=== PATIENT | male | born 1950 | race Caucasian/White ===

== ENCOUNTER 2017-07-16 08:48 | Day surgery (SDC) | payer BC, MEDICARE ==
[~2017-07-16 08:48] MED LIST: Metoclopramide 10 MG/2 ML SDV IV PRN; Sodium Chloride 0.9% 10 ML Syringe FLUSH PRN
[2017-07-16] MEDS ORDERED: Sodium Chloride 0.9% 1,000 ML IV SCH (09:30)
[2017-07-16] MEDS ORDERED: Glycopyrrolate 0.2 MG/ML 2 ML SDV ONE (10:30)
[2017-07-16] MEDS ORDERED: Propofol 200 MG/20 ML SDV ONE (10:30)
--- NOTE | 2017-07-16 16:00 | OR ---
DATE OF OPERATION: 07/16/2017 PREOPERATIVE DIAGNOSIS: Screening colonoscopy, average risk. POSTOPERATIVE DIAGNOSIS: Melanosis coli, otherwise normal colonoscopy. OPERATION: Screening colonoscopy, average risk. COMPLICATIONS: None. DRAINS: None. SPECIMENS: None. ESTIMATED BLOOD LOSS: Zero. ANESTHESIA: General propofol anesthesia. INDICATION: Mr. Mckinney is a 67-year-old gentleman with a previous colonoscopy 10 years ago. He is of average risk, and he is here for a screening colonoscopy. The above- mentioned procedure was explained. The risks, benefits, complications were explained. Patient understood and agreed, and was brought to the operating room. DESCRIPTION OF PROCEDURE: The patient was brought to the operating room, placed in a left lateral decubitus position on the operating table. Satisfactory general propofol anesthesia was administered. We began by performing a rectal examination, which was within normal limits. There was, however, several skin tags suggestive of external hemorrhoids. There was also a perianal skin tag suggestive of condyloma. Next, the endoscope was placed by finger introduction into the rectum and subsequently advanced to the level of the cecum. Cecum was identified by the appendiceal orifice, the cecal strap, and the ileocecal valve. Next, careful evaluation of the mucosa was performed on withdrawal. There was no evidence of telangiectasias, polyps, neoplastic growths, or diverticulosis. However, the colon was stained suggestive of melanosis coli, which was mild to moderate. Next, we performed a retroflexion maneuver within the rectum, which was within normal limits. It is of note that I did find that the transverse colon of the patient was quite tortuous and spiraled when the endoscope passed through. Next, the colon was decompressed and the endoscope was withdrawn. The patient tolerated the procedure well. There were no complications. Instrument count was correct. The patient was awoken in the OR and taken to the PACU for recovery. FRANCISCO/MARGO /[id number]
== END 2017-07-16 12:40 | disposition home or self-care (01) ==
LOC: LB.SDS 08:48
PROVIDERS: ATTEND Surgery
DX: Z12.11 Encounter for screening for malignant neoplasm of colon (principal); K63.89 Other specified diseases of intestine; K64.4 Residual hemorrhoidal skin tags; Z79.82 Long term (current) use of aspirin; Z79.899 Other long term (current) drug therapy; Z98.890 Other specified postprocedural states
CPT/HCPCS: 45378; J2704; J7040; J3490

== ENCOUNTER 2020-06-28 07:26 | Day surgery (SDC) | payer BC, MEDICARE ==
[~2020-06-28 07:26] MED LIST changes: +Lactated Ringers 1,000 ML IV SCH; -Metoclopramide 10 MG/2 ML SDV IV PRN; +Sodium Chloride 0.9% 1,000 ML IV SCH; -Sodium Chloride 0.9% 10 ML Syringe FLUSH PRN; +ceFAZolin 1 GM in Sodium Chloride 0.9% 50 ML IV ONE; +ceFAZolin 2 GM in Sodium Chloride 0.9% 100 ML IV ONE
[2020-06-28] MEDS ORDERED: Ondansetron 4 MG/2 ML SDV IVPUSH PRN (08:00)
[2020-06-28] MEDS ORDERED: Morphine 2 MG/ML SYRINGE IVPUSH PRN (08:00)
[2020-06-28] MEDS ORDERED: Acetaminophen/HYDROcodone 325-5 MG Tab PO PRN (08:00)
[2020-06-28] MEDS ORDERED: Midazolam 1 MG/ML 2 ML SDV ONE (09:45)
[2020-06-28] MEDS ORDERED: Sodium Chloride 0.9% 10 ML Syringe FLUSH PRN (11:48)
--- NOTE | 2020-06-28 13:55 | OR ---
DATE OF OPERATION: 06/28/2020 SURGEON: Pritesh Mehta MD BRAKE REPAIRER: Allison Katz RN PREOPERATIVE DIAGNOSIS: Right inguinal hernia. POSTOPERATIVE DIAGNOSIS: Recurrent right inguinal hernia. PROCEDURE: Open repair of recurrent right inguinal hernia with mesh. ANESTHESIA: Spinal and local. ESTIMATED BLOOD LOSS: 25 mL. COMPLICATIONS: None. INDICATION FOR THE PROCEDURE: The patient is a 70-year-old male who has had recent bulge and pain in his right groin. Denies any previous hernia repair on that side. He does have a large inguinal incision on the left side that does cross the midline and has definitely had previous hernia repair there. He is brought to the OR today for open right inguinal hernia repair. DESCRIPTION OF PROCEDURE: Informed consent was obtained from the patient, the patient was taken to the operating room and placed on table in supine position. Spinal anesthesia had previously been administered. He did receive preoperative antibiotics. His groin was prepped and draped in sterile fashion. An opening inguinal incision carried out with a 10 blade dissecting down to the subcutaneous tissue with electrocautery. I had the small superficial vein tied off with 2-0 Vicryl suture. I did encounter the external oblique. He did have a hole in the external oblique around the level of the internal ring. External oblique fascia opened. He did have significant amount of scarring here. Using blunt dissection as well as electrocautery, cord structures were bluntly and sharply dissected free from the external oblique fascia. Once this was completed, cord structures were elevated with a Dragan drain. The cord was examined. He did have a defect at the internal ring, it was quite large. No indirect hernia sac was identified within the cord structures. A large mesh plug was then placed within the internal ring and sutured into place using 2-0 Ethibond suture. The mesh patch was then sutured near the pubic tubercle and along the iliopubic tract as well as the transversalis fascia. This was cut to accommodate the cord. Tails wrapped around the cord as well. Once this was sutured into place, the external oblique fascia then closed with 2-0 Vicryl suture recreating the external ring. The wound was irrigated and dried. No active bleeding was seen. Heriberto's layer was closed with 3-0 Vicryl. The deep dermal layer was closed with 3-0 Vicryl. Skin was closed with 4-0 Monocryl in a running subcuticular fashion. Benzoin, Steri-Strips, and sterile dressings were applied. At the end of the case, all sponge count, needle count, instrument counts correct. Right testicle was retracted and found to be in good position. The patient tolerated procedure well and was brought to recovery room in good condition. AMANDA/MARGO /[id number]
== END 2020-06-28 16:45 | disposition home or self-care (01) ==
LOC: LB.SDS 07:26
PROVIDERS: ATTEND Surgery
DX: K40.91 Unilateral inguinal hernia, without obstruction or gangrene, recurrent (principal)
CPT/HCPCS: 49520; 96374; A9270; J0690; J2250; J2405; J7050; J7120